=== PATIENT | female | born 1965 | race Caucasian/White ===

== ENCOUNTER 2017-05-03 19:52 | Emergency (ER) | payer SELFPAY ==
[~2017-05-03] VITALS: Ht 160 cm; Wt 65.5 kg
[2017-05-03 19:57] VITALS: Ht 160 cm; Wt 65.5 kg
[2017-05-04] MEDS ORDERED: ONDANSETRON (ODT) 4 MG TAB ODT STA (00:20)
[2017-05-04] MEDS ORDERED: ACETAMINOPHEN 325 MG TAB PO ONE (00:30)
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
[2017-05-04] MEDS ORDERED: ACET500C5 PO (02:07)
[2017-05-04 02:15] VITALS: BP 140/72; PULSE 72; RESP 16
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
== END 2017-05-04 02:17 | disposition home or self-care (01) ==
LOC: FTE 19:52
DX: S09.90XA Unspecified injury of head, initial encounter (principal); R51 Headache; V49.50XA Passenger injured in collision with unspecified motor vehicles in traffic accident, initial encounter
CPT/HCPCS: 70450

== ENCOUNTER 2017-07-06 09:19 | Emergency (ER) | END 2017-07-06 11:48 | disposition home or self-care (01) ==